=== PATIENT | male | born 1975 | race Asian ===

== ENCOUNTER 2020-11-16 08:55 | Outpatient (REF) | payer MEDICAID, OTHER, SELFPAY ==
--- NOTE | ~2020-11-16 | XR_ITS ---
EXAMINATION: XR CERVICAL SPINE XR LUMBAR SPINE XR SHOULDER, BILATERAL CLINICAL INFORMATION: Neck pain, low back pain and bilateral shoulder pain. COMPARISON: None TECHNIQUE: Lumbar spine 3 views, cervical spine 4 views, 4 views each shoulder. FINDINGS: CERVICAL SPINE: There is mild straightening of the cervical lordosis. Minimal loss of C5-C6 and C6-C7 disc heights with ventral spondylosis noted. The rest of the disc heights are normal. No visible acute fracture or dislocation. The prevertebral soft tissues are normal. LUMBAR SPINE: There is maintained lumbar lordosis. The vertebral heights, alignment and disc heights are normal. No visible acute fracture, dislocation or lytic process seen. RIGHT SHOULDER: There is no visible acute fracture, dislocation or subluxation seen. The soft tissues are normal. LEFT SHOULDER: There is minimal loss of glenohumeral joint space without acute fracture, dislocation or subluxation. The AC joint is normal. The soft tissues are normal. XR/XR cervical spine 2V IMPRESSION: Minimal degenerative changes with ventral spondylosis C5-C6 and C6-C7 disc levels. No visible acute fracture or dislocation seen. Unremarkable lumbar spine exam. Mild degenerative changes glenohumeral joint space with no acute fracture, dislocation or subluxation seen.
--- NOTE | ~2020-11-16 | XR_ITS ---
EXAMINATION: XR CERVICAL SPINE XR LUMBAR SPINE XR SHOULDER, BILATERAL CLINICAL INFORMATION: Neck pain, low back pain and bilateral shoulder pain. COMPARISON: None TECHNIQUE: Lumbar spine 3 views, cervical spine 4 views, 4 views each shoulder. FINDINGS: CERVICAL SPINE: There is mild straightening of the cervical lordosis. Minimal loss of C5-C6 and C6-C7 disc heights with ventral spondylosis noted. The rest of the disc heights are normal. No visible acute fracture or dislocation. The prevertebral soft tissues are normal. LUMBAR SPINE: There is maintained lumbar lordosis. The vertebral heights, alignment and disc heights are normal. No visible acute fracture, dislocation or lytic process seen. RIGHT SHOULDER: There is no visible acute fracture, dislocation or subluxation seen. The soft tissues are normal. LEFT SHOULDER: There is minimal loss of glenohumeral joint space without acute fracture, dislocation or subluxation. The AC joint is normal. The soft tissues are normal. XR/XR shoulder RT min 2V IMPRESSION: Minimal degenerative changes with ventral spondylosis C5-C6 and C6-C7 disc levels. No visible acute fracture or dislocation seen. Unremarkable lumbar spine exam. Mild degenerative changes glenohumeral joint space with no acute fracture, dislocation or subluxation seen.
--- NOTE | ~2020-11-16 | XR_ITS ---
EXAMINATION: XR CERVICAL SPINE XR LUMBAR SPINE XR SHOULDER, BILATERAL CLINICAL INFORMATION: Neck pain, low back pain and bilateral shoulder pain. COMPARISON: None TECHNIQUE: Lumbar spine 3 views, cervical spine 4 views, 4 views each shoulder. FINDINGS: CERVICAL SPINE: There is mild straightening of the cervical lordosis. Minimal loss of C5-C6 and C6-C7 disc heights with ventral spondylosis noted. The rest of the disc heights are normal. No visible acute fracture or dislocation. The prevertebral soft tissues are normal. LUMBAR SPINE: There is maintained lumbar lordosis. The vertebral heights, alignment and disc heights are normal. No visible acute fracture, dislocation or lytic process seen. RIGHT SHOULDER: There is no visible acute fracture, dislocation or subluxation seen. The soft tissues are normal. LEFT SHOULDER: There is minimal loss of glenohumeral joint space without acute fracture, dislocation or subluxation. The AC joint is normal. The soft tissues are normal. XR/XR lumbar spine 2-3V IMPRESSION: Minimal degenerative changes with ventral spondylosis C5-C6 and C6-C7 disc levels. No visible acute fracture or dislocation seen. Unremarkable lumbar spine exam. Mild degenerative changes glenohumeral joint space with no acute fracture, dislocation or subluxation seen.
--- NOTE | ~2020-11-16 | XR_ITS ---
EXAMINATION: XR CERVICAL SPINE XR LUMBAR SPINE XR SHOULDER, BILATERAL CLINICAL INFORMATION: Neck pain, low back pain and bilateral shoulder pain. COMPARISON: None TECHNIQUE: Lumbar spine 3 views, cervical spine 4 views, 4 views each shoulder. FINDINGS: CERVICAL SPINE: There is mild straightening of the cervical lordosis. Minimal loss of C5-C6 and C6-C7 disc heights with ventral spondylosis noted. The rest of the disc heights are normal. No visible acute fracture or dislocation. The prevertebral soft tissues are normal. LUMBAR SPINE: There is maintained lumbar lordosis. The vertebral heights, alignment and disc heights are normal. No visible acute fracture, dislocation or lytic process seen. RIGHT SHOULDER: There is no visible acute fracture, dislocation or subluxation seen. The soft tissues are normal. LEFT SHOULDER: There is minimal loss of glenohumeral joint space without acute fracture, dislocation or subluxation. The AC joint is normal. The soft tissues are normal. XR/XR shoulder LT min 2V IMPRESSION: Minimal degenerative changes with ventral spondylosis C5-C6 and C6-C7 disc levels. No visible acute fracture or dislocation seen. Unremarkable lumbar spine exam. Mild degenerative changes glenohumeral joint space with no acute fracture, dislocation or subluxation seen.
[2020-11-16 09:20] LABS: MANUAL DIFF FLAG NO
[2020-11-16 09:24] LABS: Basophils Percent Auto 0.4 % (0-2); Eosinophils Absolute Auto 0.1 X10*3/uL (0.0-0.4); Eosinophils Percent Auto 1.4 % (0-4); Hematocrit 44.8 % (42-52); Imm Gran Abs Auto 0.02 X10*3/uL (0.00-0.03); Imm Gran Pct Auto 0.2 % (0.0-0.4); Lymphocytes Absolute Auto 3.3 X10*3/uL (1.2-4.9); Mean Corpuscular HGB Conc 33.5 g/dl (31.0-36.0); Mean Corpuscular Hemoglobin 31.6 pg (27.0-33.0); Mean Corpuscular Volume 94.3 fL (80-98); Monocytes Absolute Auto 0.7 X10*3/uL (0.1-1.2); Monocytes Percent Auto 8.2 % (2-11); Neutrophils Absolute Auto 3.9 X10*3/uL (2.0-8.3); Neutrophils Percent Auto 48.8 % (45-73); Platelet Count 196 X10*3/uL (160-400); Red Blood Count 4.75 X10*6/uL (4.60-5.80); Red Cell Distribution Width 12.6 % (11.0-16.0)
[2020-11-16 09:50] LABS: Alanine Aminotransferase 21 U/L (0-40); Albumin Level 4.4 g/dL (3.5-5.0); Alkaline Phosphatase 61 U/L (39-117); Anion Gap 12 (12-20); Aspartate Amino Transferase 17 U/L (5-37); Bilirubin Total 0.7 mg/dL (0.0-1.0); Blood Urea Nitrogen 11 mg/dL (9-16); Calcium 9.7 mg/dL (8.4-10.2); Carbon Dioxide 26 mmol/L (22-29); Chloride 107 mmol/L (96-108); Estimated Glomerular Filt Rate > 60; Glucose Random 100 mg/dL (60-115); Potassium 4.4 mmol/L (3.3-5.1); Sodium 141 mmol/L (135-145); Total Protein 7.4 g/dL (6.5-8.0)
[2020-11-16 10:12] LABS: Prostate Specific Antigen 0.52 ng/mL (<0.05-4.0); TSH reflex Free T4 0.95 uIU/mL (0.32-4.0)
== END 2020-11-16 08:56 | disposition home or self-care (01) ==
LOC: HO.XRAY 08:55
PROVIDERS: PCP Internal Medicine; Visit Provider Internal Medicine
DX: M54.5 Low back pain (principal); M25.511 Pain in right shoulder; M25.512 Pain in left shoulder; M54.2 Cervicalgia; L81.9 Disorder of pigmentation, unspecified; N40.1 Benign prostatic hyperplasia with lower urinary tract symptoms; R39.15 Urgency of urination; R63.4 Abnormal weight loss; Z12.5 Encounter for screening for malignant neoplasm of prostate
CPT/HCPCS: 36415; 72040; 72100; 73030; 80053; 84153; 84443; 85025

== ENCOUNTER 2024-01-04 15:25 | Outpatient (AMB) | payer OTHER, SELFPAY ==
[2024-01-04 15:44] VITALS: BP 120/70; PULSE 70; O2SAT 96; BMI 26.0
--- NOTE | 2024-01-04 15:44 | A.OFFPC_ITS ---
Vital Signs 01/04/24 15:44 Height 5 ft 4 in Weight 151 lb 4 oz BMI 26.0 BP 120/70 Blood Pressure Location Lt brachial Position Sitting Pulse 70 Pulse Source Pulse Oximeter Pulse Oximetry (%) 96 Oxygen Delivery Method Room Air Intake Visit Reasons: Annual exam It Business Process Architect Required: No Accompanied by: Self / Same As Patient Allergies No Known Allergies Allergy (Verified 01/05/24 05:08) Medication List - Last Reconciled 01/05/24 by Noe Dean MD tamsulosin 0.4 mg PO BEDTIME 30 days Tobacco use date assessed: 01/04/24 Dental Screening Dental Screen Date: 01/04/24 Did you have a dental visit in the last 12 months?: No Did you have a dental problem in the last 6 months where you did not have access to dental care?: No Was dental information given to patient?: No HPI Annual exam HPI Details Patient comes in today for his annual physical examination He has not been back since October 2020 as he states that we were not accepting the health insurance that he used to have over the past few years Relates that he was having a lot of problems with his stomach and with his bowel movements for a while a couple of years ago - recalls having frequent loose stools daily and states that his stomach often feels bloated and uncomfortable He was also inexplicably losing a lot of weight at the time Also recalls experiencing urinary frequency and urgency then - states that his urinary symptoms improved slowly after we started him on Tamsulosin he could not be seen or worked up then when he was having a lot of stomach and bowel issues, he eventually went to [place] to see a doctor there who practiced [place]/eastern medicine and was advised then that he may have some underlying GI pathology and/or infection but as his insurance was not commonly accepted at the time, he could not go for further work ups He was eventually prescribed some unrecalled herbal medicines that he boiled and drank daily for several months before his symptoms finally cleared up completely States that his bowel movements are now back to normal but he would still occasionally experience some abdominal bloating and discomfort; denies any abdominal pain, nausea or vomiting He denies any headaches or dizziness Denies any SOB or chest pains although he reports that he would sometimes feel his heart race or skip a couple of beats - notes that this tend to occur when he gets up too quickly from bending over He denies experiencing any other symptoms associated with these He currently denies any urinary frequency, urgency or dysuria He has never had a screening colonoscopy done in the past [facility] Medical History (Updated 01/05/24 @ 05:29 by Noe Dean MD) Overweight (BMI 25.0-29.9) Benign prostatic hyperplasia Smoker Neck pain Weight loss Bilateral shoulder pain Lumbar back pain with radiculopathy affecting right lower extremity Surgical History No significant past surgical history Family History Other No significant family history Social History Housing: House Alcohol intake: never Patient Tobacco Use Status: Current everyday Tobacco user Cigarettes Per Day: 4 service: No Current occupational status: employed Current occupation: [employer] Cognitive needs: No Hearing needs: No Vision needs: No Questionnaire PHQ-9 Over the last 2 weeks, how often have you been bothered by any of the following problems? 1. Little interest or pleasure in doing things: not at all 2. Feeling down, depressed, or hopeless: not at all 3. Trouble falling or staying asleep, or sleeping too much: not at all 4. Feeling tired or having little energy: not at all 5. Poor appetite or overeating: not at all 6. Feeling bad about yourself - or that you are a failure or have let yourself or your family down: not at all 7. Trouble concentrating on things, such as reading the newspaper or watching television: not at all 8. Moving or speaking so slowly that other people could have noticed. Or the opposite - being so fidgety or restless that you have been moving around a lot more than usual: not at all 9. Thoughts that you would be better off or of hurting yourself in some way: not at all Total score: 0 Depression Screening Interpretation: Negative Depression Screening Done: Yes [id number] - PHQ-9 Billing: Yes Source: Developed by Drs. Ulisses El, Joanne Wang, Jesús Krueger and colleagues, with an educational paradise from [employer]. Thrive Questionnaire Date Thrive assessed: 01/04/24 I am a: Parent/Caregiver What is your living situation today?: I have a steady place to live Within the past 12 months, did the food you bought not last and you didn't have the money to get more?: I choose not to answer this question Within the past 12 months, did you worry whether your food would run out before you got money to buy more?: I choose not to answer this question Do you have trouble paying for medicines?: I choose not to answer this question Do you have trouble getting transportation to medical appointments?: I choose not to answer this question Do you have trouble paying your heating and electricity bill?: No Do you have trouble taking care of your child, family member or friend?: No Do you have trouble with day-to-day activities such as bathing, preparing meals, shopping, managing finances, etc.?: No Are you currently unemployed and looking for a job?: No Are you interested in more education?: I choose not to answer this question Please select the resources that you would like help with: None Currently or been in a relationship where the following occur: No concerns reported THRIVE Score: 0 AUDIT C Alcohol Use Questionnaire (AUDIT-C) 1. How often do you have a drink containing alcohol?: Never 3. How often do you have six or more drinks on one occasion?: Never Total Score: 0 Score Reviewed/Action Taken: Yes SUE-7 AMB Questionnaire SUE-7 Date SUE - 7 assessed: 01/04/24 Feeling nervous, anxious, or on edge: 0 = Not at all Not being able to stop or control worryin = Not at all Worrying too much about different things: 0 = Not at all Trouble relaxin = Not at all Being so restless that it is hard to sit still: 0 = Not at all Becoming easily annoyed or irritable: 0 = Not at all Feeling afraid as if something awful might happen: 0 = Not at all Total SUE-7 score (0-4 normal; 5-9 mild; 10-14 moderate; 15-21 severe): 0 Source: Developed by Drs. Ulisses El, Joanne Wang, Jesús Krueger and colleagues, with an educational paradise from [employer]. Review of Systems Const Denies chills, Denies fatigue, Denies fever(s), Denies headache(s), Denies malaise and Denies weakness Eyes Denies blurry vision, Denies change in vision, Denies irritation and Denies itchy eyes ENT Denies dysphagia, Denies dizziness, Denies otalgia, Denies headache(s), Denies nasal congestion, Denies neck pain, Denies odynophagia and Denies sore throat Card Denies chest pain, Reports rapid heart rate (as per HPI, these tend to occur briefly when he gets up too quickly), Denies irregular heart rhythm, Denies palpitations and Denies dyspnea Resp Denies chest congestion, Denies cough, Denies dyspnea and Denies wheezing GI Denies abdominal pain, Reports bloating (at times), Denies constipation, Denies dysphagia, Denies heartburn, Denies diarrhea, Denies nausea, Denies odynophagia and Denies vomiting Denies hematuria, Denies difficulty urinating, Denies dysuria, Denies urinary frequency and Denies urinary urgency (symptoms improved with Tamsulosin) Musc Reports back pain (on and off), Denies arthralgias, Denies joint swelling, Denies muscle weakness and Denies neck pain Skin/Breast Denies change in pigmentation, Denies lesions, Denies rash and Denies unusual bruising Neuro Denies dizziness, Denies headache(s), Denies paresthesias and Denies weakness Endo Denies fatigue and Denies palpitations Aller/Immun Denies itchy eyes and Denies wheezing Physical exam (Primary Care) Vital Signs: Last Vital Signs Pulse 70 01/04/24 15:44 BP 120/70 01/04/24 15:44 Pulse Ox 96 01/04/24 15:44 Oxygen Delivery Method Room Air 01/04/24 15:44 BMI result Body Mass Index 26.0 Tobacco/Smoking Status: Tobacco use Status Tobacco use date assessed 01/04/24 01/04/24 15:47 Patient Tobacco Use Status Current everyday Tobacco 01/04/24 15:47 PHQ-9: PHQ-9 Score PHQ-9: Total score 0 01/04/24 16:54 Depression Screening Interpretation: Negative Thrive Assessment: Date of Thrive Assessment Date Thrive assessed 01/04/24 01/04/24 15:47 Currently or been in a relationship where the following occur: No concerns reported Const General: no acute distress, alert and awake Orientation/consciousness: patient oriented x3 HENMT Head: Yes normocephalic and Yes atraumatic Ears: external ears normal, TM's normal bilaterally and EAC's normal General nose exam: No nasal discharge present Face and sinus: Yes normal facial exam and Yes sinuses nontender Teeth and gingiva: dentition normal Throat: Yes posterior oropharynx normal and Yes tonsils normal (no TP congestion) Eyes Eyelids: Yes eyelids normal Conjunctivae: conjunctivae normal Pupils: Equal, round and reactive pupils present EOM: EOMs intact bilaterally Neck Neck: Yes no lymphadenopathy and Yes supple Thyroid: Thyroid normal Resp Auscultation: clear to auscultation bilaterally, no rales and no wheezes Cardio Rate: regular rate Rhythm: regular rhythm Heart sounds: no murmurs GI Palpation (GI): Soft to palpation, nontender and No hepatosplenomegaly present Auscultation: normal bowel sounds General: Yes no CVA tenderness Back/Spine/Pelvis Back: no CVA tenderness Thoracic/Lumbar Spine: thoracic and lumbar spine normal to inspection Skin Lesions: no lesions Rashes: no rashes Neuro General: patient oriented x3, moves all extremities, no focal motor deficits and CN's II-XI intact bilaterally Cranial nerves: Yes Equal, round and reactive pupils present Cognition (Neuro): normal cognition Gait exam (Neuro): Normal gait present Extrem General: Yes no clubbing, cyanosis or edema Assessment and Plan Assessment & Plan (1) Annual physical exam: Code(s): Z00.00 - Encounter for general adult medical examination without abnormal findings Plan: Check labs He has never had a screening colonoscopy done and will be referred for this (2) Tachycardia, unspecified: Code(s): R00.0 - Tachycardia, unspecified Plan: Check labs Will also send him for a 12-lead EKG for further evaluation (3) Dyspnea: Code(s): R06.00 - Dyspnea, unspecified Qualifiers: Dyspnea type: unspecified Qualified Code(s): R06.00 - Dyspnea, unspecified Plan: Will send him for chest x-rays for further evaluation Advised that if his chest x-rays and EKG do not help explain his symptoms and they continue to recur, he may need to go for an echocardiogram for further evaluation (4) Urinary urgency: Code(s): R39.15 - Urgency of urination Plan: This is likely secondary to BPH Will check his PSA level for further evaluation Continue Tamsulosin 0.4 mg Q HS for now (5) Smoker: Code(s): F17.200 - Nicotine dependence, unspecified, uncomplicated Plan: Counseled on smoking cessation (6) Overweight (BMI 25.0-29.9): Code(s): E66.3 - Overweight Plan: Reinforced diet/weight loss; exercise is impractical for him considering his line of work but states that 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 Panel Fast 01/04/24 E78.00 - Pure hypercholesterolemia, unspecified, Z00.00 - Encounter for general adult medical examination without abnormal findings UA CC w/rflx Micro + Cult 01/04/24 R30.0 - Dysuria, Z00.00 - Encounter for general adult medical examination without abnormal findings Vitamin D 25-OH Total 01/04/24 E55.9 - Vitamin D deficiency, unspecified, Z00.00 - Encounter for general adult medical examination without abnormal findings Hemoglobin A1c 01/04/24 E11.9 - Type 2 diabetes mellitus without complications, Z00.00 - Encounter for general adult medical examination without abnormal fi ndings Prostate Specific Antigen 01/04/24 N40.0 - Benign prostatic hyperplasia without lower urinary tract symptoms, Z00.00 - Encounter for general adult medical examination without abnormal findings XR chest 2V 01/04/24 R06.00 - Dyspnea, unspecified Complete Blood Count Auto Diff 01/04/24 D64.9 - Anemia, unspecified, Z00.00 - Encounter for general adult medical examination without abnormal findings Lipid Panel 01/04/24 E78.00 - Pure hypercholesterolemia, unspecified, Z00.00 - Encounter for general adult medical examination without abnormal findings TSH reflex Free T4 01/04/24 E78.00 - Pure hypercholesterolemia, unspecified, Z00.00 - Encounter for general adult medical examination without abnormal findings ECG 12 lead EKG 09/17/24 R06.00 - Dyspnea, unspecified C Reactive Protein 01/04/24 M25.511 - Pain in right shoulder, M25.512 - Pain in left shoulder, M54.16 - Radiculopathy, lumbar region Erythrocyte Sedimentation Rate 01/04/24 M54.16 - Radiculopathy, lumbar region Referrals Gastroenterology Referral Z00.00 - Encounter for general adult medical examination without abnormal findings, Z12.11 - Encounter for screening for malignant neoplasm of colon Coding Level of Care Code [facility] Care [id number]) Diagnoses Annual physical exam Z00.00 Tachycardia, unspecified R00.0 Dyspnea, unspecified type R06.00 Dyspnea type: unspecified Urinary urgency R39.15 Smoker F17.200 Overweight (BMI 25.0-29.9) E66.3 Colon cancer screening Z12.11
== END 2024-01-04 16:45 | disposition home or self-care (01) ==
PROVIDERS: PCP Internal Medicine; Visit Provider Internal Medicine
DX: Z00.00 Encounter for general adult medical examination without abnormal findings (principal); R00.0 Tachycardia, unspecified; R06.00 Dyspnea, unspecified; R39.15 Urgency of urination; F17.200 Nicotine dependence, unspecified, uncomplicated; E66.3 Overweight; Z12.11 Encounter for screening for malignant neoplasm of colon

== ENCOUNTER → 2024-01-04 15:25 | Outpatient (BNVA) | payer OTHER, SELFPAY | PROVIDERS: PCP Internal Medicine; Visit Provider Internal Medicine | DX: Z00.01 Encounter for general adult medical examination with abnormal findings (principal); R00.0 Tachycardia, unspecified; R06.00 Dyspnea, unspecified; R39.15 Urgency of urination; E66.3 Overweight; F17.200 Nicotine dependence, unspecified, uncomplicated; Z71.6 Tobacco abuse counseling | CPT/HCPCS: 99386 ==

== ENCOUNTER 2024-01-05 07:37 | Outpatient (REF) | payer OTHER, SELFPAY ==
--- NOTE | ~2024-01-05 | XR_ITS ---
EXAMINATION: XR CHEST CLINICAL INFORMATION: R06.00 - Dyspnea, unspecified COMPARISON: None available. TECHNIQUE: 2 views of the chest were obtained. FINDINGS: No significant abnormality is noted involving the heart, lungs, mediastinum, bony thorax or soft tissues. XR/XR chest 2V IMPRESSION: Normal chest. Electronically signed by: Jose Tran MD 03/15/2024 02:03 PM [facility]
--- NOTE | 2024-01-05 07:44 | ECG_ITS ---
Test Reason : dyspnea Blood Pressure : / mmHG Vent. Rate : 063 BPM Atrial Rate : 063 BPM P-R Int : 138 ms QRS Dur : 102 ms QT Int : 408 ms P-R-T Axes : 048 063 046 degrees QTc Int : 417 ms Normal sinus rhythm Normal ECG No previous ECGs available Referred By: Noe Dean Electronically Signed By:KELLI BALL
[2024-01-05 07:53] LABS: MANUAL DIFF FLAG NO
[2024-01-05 08:29] LABS: Basophils Percent Auto 0.4 % (0-2); Eosinophils Absolute Auto 0.1 X10*3/uL (0.0-0.4); Eosinophils Percent Auto 1.4 % (0-4); Hematocrit 47.1 % (42.0-52.0); Hemoglobin 15.7 g/dl (14.0-18.0); Imm Gran Abs Auto 0.03 X10*3/uL (0.00-0.03); Imm Gran Pct Auto 0.3 % (0.0-0.4); Lymphocytes Absolute Auto 3.7 X10*3/uL (1.2-4.9); Lymphocytes Percent Auto 40.1 % (20-40); Mean Corpuscular HGB Conc 33.3 g/dl (31.0-36.0); Mean Corpuscular Volume 95.9 fL (80.0-98.0); Mean Platelet Volume 10.1 fL (9.4-12.4); Monocytes Absolute Auto 0.8 X10*3/uL (0.1-1.2); Monocytes Percent Auto 8.2 % (2-11); Neutrophils Absolute Auto 4.6 x10*3/uL (2.0-8.3); Neutrophils Percent Auto 49.6 % (45-73); Platelet Count 212 X10*3/uL (160-400); Red Blood Count 4.91 X10*6/uL (4.60-5.80); Red Cell Distribution Width 12.8 % (11.0-16.0); White Blood Count 9.3 X10*3/uL (4.8-10.8)
[2024-01-05 08:34] LABS: Estimated Average Glucose 103 mg/dL; Hemoglobin A1c % 5.2 % (<6.0)
[2024-01-05 09:11] LABS: Erythrocyte Sedimentation Rate 2 MM/HR (0-15)
[2024-01-05 09:14] LABS: Alanine Aminotransferase 36 U/L (0-40); Albumin Level 4.3 g/dL (3.5-5.0); Alkaline Phosphatase 64 U/L (39-117); Anion Gap 10 (12-20); Aspartate Amino Transferase 23 U/L (5-37); Bilirubin Total 0.2 mg/dL (0.0-1.0); Blood Urea Nitrogen 18 mg/dL (9-16); C Reactive Protein < 0.10 mg/dL (< or = 0.50); Calcium 9.3 mg/dL (8.4-10.2); Carbon Dioxide 26 mmol/L (22-29); Chloride 111 mmol/L (96-108); Cholesterol 142 mg/dL (<200); Estimated Glomerular Filt Rate > 60; Glucose Fasting 97 mg/dL (60-99); HDL Cholesterol 42 mg/dL (>40); LDL Cholesterol Calculated 89 mg/dL (<100); Potassium 4.7 mmol/L (3.3-5.1); Sodium 142 mmol/L (135-145); Total Protein 7.8 g/dL (6.5-8.0); Triglycerides 56 mg/dL (<150)
[2024-01-05 09:19] LABS: TSH reflex Free T4 1.96 uIU/mL (0.32-4.0); Vitamin D 25-OH Total 33.1 ng/mL (>30)
[2024-01-05 09:50] LABS: Appearance Urine Clear; Color Urine Yellow; Glucose Urine UA Negative (Negative); Leukocyte Esterase Urine Negative (Negative); Nitrite Urine Negative (Negative); Urine Blood Negative (Negative); Urine Ketones Negative (Negative); Urine Protein Negative (Neg-Trace)
== END 2024-01-05 07:38 | disposition home or self-care (01) ==
LOC: HO.XRAY 07:37
PROVIDERS: PCP Internal Medicine; Visit Provider Internal Medicine
DX: Z00.00 Encounter for general adult medical examination without abnormal findings (principal); M25.511 Pain in right shoulder; M25.512 Pain in left shoulder; M54.16 Radiculopathy, lumbar region; E11.9 Type 2 diabetes mellitus without complications; E78.00 Pure hypercholesterolemia, unspecified; N40.0 Benign prostatic hyperplasia without lower urinary tract symptoms; R30.0 Dysuria; E55.9 Vitamin D deficiency, unspecified
CPT/HCPCS: 36415; 71046; 80053; 80061; 81003; 82306; 83036; 84153; 84443; 85025; 85652; 86140; 93005

== ENCOUNTER → 2024-01-05 08:19 | Outpatient (BNV) | payer OTHER, SELFPAY | PROVIDERS: PCP Internal Medicine; Visit Provider Radiology Diagnostic Radiology | DX: R06.00 Dyspnea, unspecified (principal) | CPT/HCPCS: 71046 ==

== ENCOUNTER 2024-07-11 09:28 | Outpatient (AMB) | payer OTHER, SELFPAY ==
--- NOTE | 2024-07-11 09:32 | MHC.OFFVIS ---
Vital Signs 07/11/24 09:35 Height 5 ft 4 in Weight 156 lb 8.451 oz BMI 26.9 BP 126/66 Blood Pressure Location Rt brachial Position Sitting Pulse 64 Pulse Source Pulse Oximeter Pulse Oximetry (%) 97 Oxygen Delivery Method Room Air Intake Visit Reasons: Colonoscopy Screening Intake Note: NEW PATIENT for initial colo screening. Chief Complaint; No GI concerns at this time. Pt would prefer cologuard over procedure. Customer Support Advisor Required: Yes Customer Support Advisor Services: Customer Support Advisor Offered & Declined Information Interpreted: clinical only Accompanied by: Family/Other Allergies shellfish derived Allergy (Severe, Verified 07/11/24 09:40) Anaphylaxis HPI HPI Colonoscopy Screening: Details: 49 year old? male with past medical history of tachycardia, depression, BPH, lumbar back pain, urinary urgency is here today for pre colonoscopy screening.? Patient was sent to us by his PCP.? This is his first colonoscopy screening.? Patient denies any gastrointestinal symptoms in the past or at present.? However patient does admit of chronic IBS symptoms. Depending on what he eats frequent bowel movements, denies diarrhea. Denies melena, hematochezia. Patient would like to do Cologuard 1st. He understands that if comes back positive he will go for colonoscopy.? Patient denies any dyspepsia, dysphagia or odynophagia. Reports to be feeling fairly well. Denies any additional GI concerning symptoms.Denies any personal or family history of gastrointestinal disease, colon polyps, or CRC.? REPLACED BY [facility] Medical History (Updated 01/05/24 @ 05:29 by Noe Dean MD) Overweight (BMI 25.0-29.9) Benign prostatic hyperplasia Smoker Neck pain Weight loss Bilateral shoulder pain Lumbar back pain with radiculopathy affecting right lower extremity Surgical History No significant past surgical history Family History (Updated 07/11/24 @ 09:51 by [facility]) Unknown No significant family history Social History Housing: House Alcohol intake: never Patient Tobacco Use Status: Current everyday Tobacco user Cigarettes Per Day: 4 service: No Current occupational status: employed Current occupation: cook Cognitive needs: No Hearing needs: No Vision needs: No Review of Systems Const Denies weight gain and Denies weight loss ENT Reports no additional complaints, Denies dysphagia and Denies odynophagia Card Reports no additional complaints Resp Reports no additional complaints GI Denies abdominal pain, Denies belching, Denies melena, Denies bloating, Denies change in bowel habits, Denies dysphagia, Denies excessive flatus, Denies dyspepsia, Denies heartburn, Denies diarrhea, Denies loose stools, Denies nausea, Denies odynophagia and Denies vomiting Reports no additional complaints Musc Reports no additional complaints Neuro Reports no additional complaints Psych Reports no additional complaints Endo Reports no additional complaints Physical Exam Const General: healthy appearing, no acute distress and well developed Nutritional Appearance: well nourished Orientation/consciousness: patient oriented x3 Resp Effort & Inspection: normal respiratory effort, able to speak in complete sentences, no tracheal deviation and symmetric chest movement Auscultation: clear to auscultation bilaterally Cardio Rate: regular rate GI Inspection: Yes normal to inspection and No distended Palpation (GI): Soft to palpation, not firm, nontender and No hepatosplenomegaly present Auscultation: normal bowel sounds General: Yes no CVA tenderness Back/Spine/Pelvis Back: no CVA tenderness Skin General skin exam: elasticity normal, turgor normal and dry skin Neuro General: patient oriented x3 Psych Appearance: grossly normal Mental Status: mental status grossly normal Assessment & Plan Assessment & Plan (1) Colon cancer screening: Code(s): Z12.11 - Encounter for screening for malignant neoplasm of colon Category: Medical Plan Will send Cologuard. If positive patient agreed to go for colonoscopy. Will call patient with results and bring him in for colo screening if positive. Patient is agreeable to this plan and verbalizes understanding of instructions. He was given the opportunity to ask questions and all questions answered. Thank you for allowing me to participate in his care Coding Level of Care Code New Pt Level 3 (25287) Diagnoses Colon cancer screening Z12.11 Time Spent (min) 40 Comment 30 minutes spent with patient and additional 10 minutes spent reviewing his records
[2024-07-11 09:35] VITALS: BP 126/66; PULSE 64; O2SAT 97; BMI 26.9
== END 2024-07-11 09:55 | disposition home or self-care (01) ==
LOC: HO.HGI 09:28
PROVIDERS: PCP Internal Medicine; Visit Provider Nurse Practitioner Family
DX: Z01.818 Encounter for other preprocedural examination (principal); Z12.11 Encounter for screening for malignant neoplasm of colon
CPT/HCPCS: 99202

== ENCOUNTER → 2024-07-11 09:28 | Outpatient (BNVA) | payer OTHER, SELFPAY | PROVIDERS: PCP Internal Medicine; Visit Provider Nurse Practitioner Family | DX: Z12.11 Encounter for screening for malignant neoplasm of colon (principal) | CPT/HCPCS: 99202 ==

== ENCOUNTER 2024-10-26 08:05 | Outpatient (AMB) | payer OTHER, SELFPAY ==
[2024-10-26 08:13] VITALS: BP 100/62; PULSE 74; TEMP 36.6; O2SAT 95; BMI 26.1
--- NOTE | 2024-10-26 08:13 | AM.OFFWIN_ITS ---
Intake Vital Signs 10/26/24 08:13 Height 5 ft 4 in Weight 152 lb BMI 26.1 BP 100/62 Blood Pressure Location Rt brachial Position Sitting Pulse 74 Pulse Source Pulse Oximeter Temp 97.8 F Temp Source Oral Pulse Oximetry (%) 95 Oxygen Delivery Method Room Air Intake Visit Reasons: EP pain on RT leg/foot Intake Note: presents with right hip pain down to right foot and right shoulder pain that is worse with the rainy weather for years. Also c/o belly ache with diarrhea sometimes. Patient Tobacco Use Status: Current everyday Tobacco user Allergies shellfish derived Allergy (Severe, Verified 10/26/24 08:20) Anaphylaxis Do you need a note to return to daycare/school/sports/work: No HPI HPI Comments History of Present Illness Details 49 y/o Male patient who presents to the walk in clinic with c/o Abdominal pain for 1-2 weeks. Reports symptoms on/off associated with Loose Stools. Denies Nausea/vomiting/Fevers or chills. 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 Denies any Diet, medication changes. Denies any recent Travels. Denies Urinary symptoms. Denies Blood in Stools. Patient has Colonoscopy done. Patient was accompanied by a Cousin who assisted with Translation - declined Language line translator/interpreter. [facility] Medical History (Updated 10/26/24 @ 10:07 by Clari Rodas NP) Generalized abdominal pain Overweight (BMI 25.0-29.9) Benign prostatic hyperplasia Smoker Neck pain Weight loss Bilateral shoulder pain Lumbar back pain with radiculopathy affecting right lower extremity Surgical History No significant past surgical history Family History (Updated 07/11/24 @ 09:51 by SUREKHA Crowley) Unknown No significant family history Social History Housing: House Alcohol intake: never Patient Tobacco Use Status: Current everyday Tobacco user Cigarettes Per Day: 4 service: No Current occupational status: employed Current occupation: cook Cognitive needs: No Hearing needs: No Vision needs: No Review of Systems Const All systems reviewed & are unremarkable except as noted in HPI and below Physical Exam Vital Signs: Last Vital Signs Temp 97.8 F 10/26/24 08:13 Pulse 74 10/26/24 08:13 BP 100/62 10/26/24 08:13 Pulse Ox 95 10/26/24 08:13 Oxygen Delivery Method Room Air 10/26/24 08:13 BMI result Body Mass Index 26.1 Const General: no acute distress Nutritional Appearance: well nourished Orientation/consciousness: patient oriented x3 Resp Effort & Inspection: normal respiratory effort and able to speak in complete sentences Auscultation: clear to auscultation bilaterally, no crackles, no rales, no rhonchi and no wheezes Cardio Heart sounds: S1 normal heart sound present and S2 normal heart sound present GI Inspection: Yes normal to inspection Palpation (GI): Soft to palpation, not firm, nontender, no guarding, not rigid and No hepatosplenomegaly present Auscultation: normal bowel sounds Rectal Exam - Male: Yes deferred General: Yes no CVA tenderness Back/Spine/Pelvis Back: no CVA tenderness Neuro General: patient oriented x3 Assessment & Plan Assessment & Plan (1) Generalized abdominal pain: Code(s): R10.84 - Generalized abdominal pain Plan: DDx: GERD vs Gastritis vs Viral Abdominal pain mostly located at Epigastric region. Pt Will need to schedule for Colonoscopy with GI Advised to avoid Oily greasy foods and Spicy Hydrate well with fluids. Maintain a Good Hand hygiene. Coding Level of Care Code Est Pt Level 4 (75009) Diagnoses Generalized abdominal pain R10.84 Time Spent (min) 20
== END 2024-10-26 09:24 | disposition home or self-care (01) ==
PROVIDERS: PCP Internal Medicine; Visit Provider Nurse Practitioner Family
DX: R10.84 Generalized abdominal pain (principal)

== ENCOUNTER → 2024-10-26 08:05 | Outpatient (BNVA) | payer OTHER, SELFPAY | PROVIDERS: PCP Internal Medicine; Visit Provider Nurse Practitioner Family | DX: R10.84 Generalized abdominal pain (principal) | CPT/HCPCS: 99212 ==

== ENCOUNTER 2025-01-23 16:34 | Outpatient (AMB) | payer OTHER, SELFPAY ==
--- NOTE | 2025-01-23 17:05 | A.OFFPC_ITS ---
Vital Signs 01/23/25 17:06 Height 5 ft 4 in Weight 153 lb 4 oz BMI 26.3 BP 120/80 Blood Pressure Location Lt brachial Position Sitting Respiration 18 Pulse 90 Pulse Source Pulse Oximeter Temp 97.3 F Temp Source Temporal Artery Scan Pulse Oximetry (%) 98 Oxygen Delivery Method Room Air Intake Visit Reasons: Annual Physical, Home Furnishings Sales Representative Required: No Accompanied by: Self / Same As Patient Allergies shellfish derived Allergy (Severe, Verified 01/24/25 05:49) Anaphylaxis Medication List - Last Reconciled 01/24/25 by Noe Dean MD No Known Home Meds Tobacco use date assessed: 01/23/25 Dental Screening Dental Screen Date: 01/23/25 Did you have a dental visit in the last 12 months?: No Did you have a dental problem in the last 6 months where you did not have access to dental care?: No Was dental information given to patient?: No HPI Annual Physical, HPI Details Patient comes in today for his annual physical examination States that he feels okay and that his previous complaints of tachycardia and dyspnea have since resolved and patient thinks that those were mostly due to anxiety as he recalls being under a lot of stress last year He denies any headaches or dizziness Denies any chest pains, no SOB No nausea/vomiting, no abdominal pain No change in bowel habits noted He denies any acute urinary symptoms - his previous urinary symptoms last year have also resolved and states that he did not even started taking the Tamsulosin that we prescribed for him last year He was seen by GI for a precolonoscopy visit earlier this year but instead ended up getting a Cologuard test done instead of an actual colonoscopy Recalls that he did his Cologuard test sometime back in September 2024 and would like to know how his test came out - states that GI never reached out back to him to let him know about his test results [facility] Medical History Generalized abdominal pain Overweight (BMI 25.0-29.9) Benign prostatic hyperplasia Smoker Neck pain Weight loss Bilateral shoulder pain Lumbar back pain with radiculopathy affecting right lower extremity Surgical History No significant past surgical history Family History Unknown No significant family history Social History Housing: House Alcohol intake: never Patient Tobacco Use Status: Current everyday Tobacco user Cigarettes Per Day: 4 service: No Current occupational status: employed Current occupation: [employer] Cognitive needs: No Hearing needs: No Vision needs: No Questionnaire PHQ-9 Over the last 2 weeks, how often have you been bothered by any of the following problems? 1. Little interest or pleasure in doing things: not at all 2. Feeling down, depressed, or hopeless: not at all 3. Trouble falling or staying asleep, or sleeping too much: not at all 4. Feeling tired or having little energy: not at all 5. Poor appetite or overeating: not at all 6. Feeling bad about yourself - or that you are a failure or have let yourself or your family down: not at all 7. Trouble concentrating on things, such as reading the newspaper or watching television: not at all 8. Moving or speaking so slowly that other people could have noticed. Or the opposite - being so fidgety or restless that you have been moving around a lot more than usual: not at all 9. Thoughts that you would be better off or of hurting yourself in some way: not at all Total score: 0 Depression Screening Interpretation: Negative Depression Screening Done: Yes 07508 - PHQ-9 Billing: Yes Source: Developed by Drs. Ulisses El, Joanne Wang, Jesús Krueger and colleagues, with an educational paradise from [employer]. Thrive Questionnaire Date Thrive assessed: 01/23/25 I am a: Parent/Caregiver What is your living situation today?: I have a steady place to live Within the past 12 months, did the food you bought not last and you didn't have the money to get more?: Sometimes True Within the past 12 months, did you worry whether your food would run out before you got money to buy more?: Never true Do you have trouble paying for medicines?: No Do you have trouble getting transportation to medical appointments?: No Do you have trouble paying your heating and electricity bill?: No Do you have trouble taking care of your child, family member or friend?: No Do you have trouble with day-to-day activities such as bathing, preparing meals, shopping, managing finances, etc.?: No Are you currently unemployed and looking for a job?: Yes Are you interested in more education?: No Please select the resources that you would like help with: None Currently or been in a relationship where the following occur: I choose not to answer THRIVE Score: 1 AUDIT C Alcohol Use Questionnaire (AUDIT-C) 1. How often do you have a drink containing alcohol?: Never Total Score: 0 Score Reviewed/Action Taken: Yes SUE-7 AMB Questionnaire SUE-7 Date SUE - 7 assessed: 01/04/24 Feeling nervous, anxious, or on edge: 0 = Not at all Not being able to stop or control worryin = Not at all Worrying too much about different things: 0 = Not at all Trouble relaxin = Not at all Being so restless that it is hard to sit still: 0 = Not at all Becoming easily annoyed or irritable: 0 = Not at all Feeling afraid as if something awful might happen: 0 = Not at all Total SUE-7 score (0-4 normal; 5-9 mild; 10-14 moderate; 15-21 severe): 0 Source: Developed by Drs. Ulisses El, Joanne Wang, Jesús Krueger and colleagues, with an educational paradise from [employer]. Review of Systems Const Denies chills, Denies fatigue, Denies fever(s), Denies headache(s), Denies malaise and Denies weakness Eyes Denies blurry vision, Denies change in vision, Denies irritation and Denies itchy eyes ENT Denies dysphagia, Denies dizziness, Denies otalgia, Denies headache(s), Denies nasal congestion, Denies neck pain, Denies odynophagia and Denies sore throat Card Denies chest pain, Denies rapid heart rate, Denies irregular heart rhythm, Denies palpitations and Denies dyspnea Resp Denies chest congestion, Denies cough, Denies dyspnea and Denies wheezing GI Denies abdominal pain, Denies bloating, Denies constipation, Denies dysphagia, Denies heartburn, Denies diarrhea, Denies nausea, Denies odynophagia and Denies vomiting Denies hematuria, Denies difficulty urinating, Denies dysuria, Denies urinary frequency and Denies urinary urgency Musc Denies back pain, Denies arthralgias, Denies joint swelling, Denies muscle weakness and Denies neck pain Skin/Breast Denies change in pigmentation, Denies lesions, Denies rash and Denies unusual bruising Neuro Denies dizziness, Denies headache(s), Denies paresthesias and Denies weakness Endo Denies fatigue and Denies palpitations Aller/Immun Denies itchy eyes and Denies wheezing Physical exam (Primary Care) Vital Signs: Last Vital Signs Temp 97.3 F 01/23/25 17:06 Pulse 90 01/23/25 17:06 Resp 18 01/23/25 17:06 BP 120/80 01/23/25 17:06 Pulse Ox 98 01/23/25 17:06 Oxygen Delivery Method Room Air 01/23/25 17:06 BMI result Body Mass Index 26.3 Tobacco/Smoking Status: Tobacco use Status Tobacco use date assessed 01/23/25 01/23/25 17:12 Patient Tobacco Use Status Current everyday Tobacco 01/23/25 17:12 PHQ-9: PHQ-9 Score PHQ-9: Total score 0 01/23/25 17:53 Depression Screening Interpretation: Negative Thrive Assessment: Date of Thrive Assessment Date Thrive assessed 01/23/25 01/23/25 17:12 Currently or been in a relationship where the following occur: I choose not to answer Const General: no acute distress, alert and awake Orientation/consciousness: patient oriented x3 HENMT Head: Yes normocephalic and Yes atraumatic Ears: external ears normal, TM's normal bilaterally and EAC's normal General nose exam: No nasal discharge present Face and sinus: Yes normal facial exam and Yes sinuses nontender Teeth and gingiva: dentition normal Throat: Yes posterior oropharynx normal and Yes tonsils normal (no TP congestion) Eyes Eyelids: Yes eyelids normal Conjunctivae: conjunctivae normal Pupils: Equal, round and reactive pupils present EOM: EOMs intact bilaterally Neck Neck: Yes supple and No lymphadenopathy Thyroid: Thyroid normal Resp Auscultation: clear to auscultation bilaterally, no rales and no wheezes Cardio Rate: regular rate Rhythm: regular rhythm Heart sounds: no murmurs GI Palpation (GI): Soft to palpation, nontender and No hepatosplenomegaly present Auscultation: normal bowel sounds General: Yes no CVA tenderness Back/Spine/Pelvis Back: no CVA tenderness Thoracic/Lumbar Spine: thoracic and lumbar spine normal to inspection Skin Lesions: no lesions Rashes: no rashes Neuro General: patient oriented x3, moves all extremities, no focal motor deficits and CN's II-XI intact bilaterally Cranial nerves: Yes Equal, round and reactive pupils present Cognition (Neuro): normal cognition Gait exam (Neuro): Normal gait present Extrem General: Yes no clubbing, cyanosis or edema Coding Level of Care Code Est Pt Prev Care 40-64y(29015) Diagnoses Annual physical exam Z00.00 Smoker F17.200 Overweight (BMI 25.0-29.9) E66.3 Additional Codes PHQ-9 - 33775 - PHQ-9 Billing: Yes ([id number]) Assessment & Plan Assessment & Plan (1) Annual physical exam: Code(s): Z00. - Encounter for general adult medical examination without abnormal findings Category: Medical Plan: Check labs YECENIA to complete his annual exam Patient recalls getting his Cologuard test done sometime back in September 2024 but states that he never received a call back from GI as to how his test came out He was referred for a screening colonoscopy but after seeing GI earlier this year for his precolonoscopy visit, this was changed over to Cologuard testing due to patient's average colon cancer risks We have not received a copy of his Cologuard test result and will try to reach out to GI tomorrow to see if they can have his result sent over to us for documentation (2) Smoker: Code(s): F17.200 - Nicotine dependence, unspecified, uncomplicated Category: Social Hx Plan: Patient is counseled again on complete smoking cessation (3) Overweight (BMI 25.0-29.9): Code(s): E66.3 - Overweight Category: Medical Plan: Reinforced diet/exercise as tolerated/lose weight Plan To return in 1 year for his next annual physical examination Orders: Orders UA CC w/rflx Micro + Cult 01/23/25 R30.0 - Dysuria, Z00.00 - Encounter for general adult medical examination without abnormal findings Hemoglobin A1c 01/23/25 Z00.00 - Encounter for general adult medical examination without abnormal findings Prostate Specific Antigen 01/23/25 N40.0 - Benign prostatic hyperplasia without lower urinary tract symptoms, Z00.00 - Encounter for general adult medical examination without abnormal findings Complete Blood Count Auto Diff 01/23/25 D64.9 - Anemia, unspecified, Z00.00 - Encounter for general adult medical examination without abnormal findings Comprehensive Falcon. Panel Fast 01/23/25 E78.00 - Pure hypercholesterolemia, unspecified, Z00.00 - Encounter for general adult medical examination without abnormal findings Lipid Panel 01/23/25 E78.00 - Pure hypercholesterolemia, unspecified, Z00.00 - Encounter for general adult medical examination without abnormal findings TSH reflex Free T4 01/23/25 E78.00 - Pure hypercholesterolemia, unspecified, Z00.00 - Encounter for general adult medical examination without abnormal f indings Vitamin B12 and Folate 01/23/25 E53.8 - Deficiency of other specified B group vitamins, Z00.00 - Encounter for general adult medical examination without abnormal findings Vitamin D 25-OH Total 01/23/25 E55.9 - Vitamin D deficiency, unspecified, Z00.00 - Encounter for general adult medical examination without abnormal findings
[2025-01-23 17:06] VITALS: BP 120/80; PULSE 90; RESP 18; TEMP 36.3; O2SAT 98; BMI 26.3
== END 2025-01-23 17:57 | disposition home or self-care (01) ==
LOC: HO.HMCH 16:34
PROVIDERS: PCP Internal Medicine; Visit Provider Internal Medicine
DX: Z00.00 Encounter for general adult medical examination without abnormal findings (principal); F17.200 Nicotine dependence, unspecified, uncomplicated; E66.3 Overweight

== ENCOUNTER → 2025-01-23 16:34 | Outpatient (BNVA) | payer OTHER, SELFPAY | PROVIDERS: PCP Internal Medicine; Visit Provider Internal Medicine | DX: Z00.00 Encounter for general adult medical examination without abnormal findings (principal); E66.3 Overweight; R30.0 Dysuria; N40.0 Benign prostatic hyperplasia without lower urinary tract symptoms; D64.9 Anemia, unspecified; E78.00 Pure hypercholesterolemia, unspecified; E53.8 Deficiency of other specified B group vitamins; E55.9 Vitamin D deficiency, unspecified; F17.200 Nicotine dependence, unspecified, uncomplicated; Z68.26 Body mass index [BMI] 26.0-26.9, adult | CPT/HCPCS: 96127; 99396 ==

== ENCOUNTER 2025-01-24 08:25 | Outpatient (REF) | payer OTHER, SELFPAY ==
[2025-01-24 08:49] LABS: MANUAL DIFF FLAG NO
[2025-01-24 08:58] LABS: Hematocrit 43.9 % (42.0-52.0); Hemoglobin 14.9 g/dl (14.0-18.0); Imm Gran Abs Auto 0.03 X10*3/uL (0.00-0.03); Imm Gran Pct Auto 0.4 % (0.0-0.4); Lymphocytes Absolute Auto 2.9 X10*3/uL (1.2-4.9); Mean Corpuscular HGB Conc 33.9 g/dl (31.0-36.0); Mean Corpuscular Hemoglobin 31.8 pg (27.0-33.0); Mean Corpuscular Volume 93.6 fL (80.0-98.0); NRBC Abs Auto 0.000 X10*3/uL (0.0-0.012); NRBC Pct Auto 0.0 /100WBC (0.0-0.2); Platelet Count 197 X10*3/uL (160-400); Red Blood Count 4.69 X10*6/uL (4.60-5.80); White Blood Count 8.0 X10*3/uL (4.8-10.8)
[2025-01-24 09:08] LABS: Appearance Urine Clear; Glucose Urine UA Negative (Negative); PH 5.5 (5.0-9.0); Specific Gravity - Urine >= 1.030 (1.005-1.025)
[2025-01-24 09:53] LABS: Alanine Aminotransferase 45 U/L (0-40); Albumin Level 4.4 g/dL (3.5-5.0); Alkaline Phosphatase 69 U/L (39-117); Anion Gap 9 (12-20); Aspartate Amino Transferase 29 U/L (5-37); Blood Urea Nitrogen 19 mg/dL (9-16); Calcium 9.1 mg/dL (8.4-10.2); Carbon Dioxide 25 mmol/L (22-29); Chloride 112 mmol/L (96-108); Cholesterol 166 mg/dL (<200); Estimated Glomerular Filt Rate > 60; HDL Cholesterol 40 mg/dL (>40); Potassium 3.7 mmol/L (3.3-5.1); Sodium 142 mmol/L (135-145); Total Protein 7.3 g/dL (6.5-8.0); Triglycerides 80 mg/dL (<150)
[2025-01-24 10:13] LABS: Folate 11.8 ng/mL (> or = 4.0); Prostate Specific Antigen 0.77 ng/mL (<0.05-4.0); Vitamin B12 684 pg/mL (200-900)
== END 2025-01-24 08:26 | disposition home or self-care (01) ==
LOC: HO.LAB 08:25
PROVIDERS: PCP Internal Medicine; Visit Provider Internal Medicine
DX: Z00.00 Encounter for general adult medical examination without abnormal findings (principal); N40.0 Benign prostatic hyperplasia without lower urinary tract symptoms; E53.8 Deficiency of other specified B group vitamins; R30.0 Dysuria; D64.9 Anemia, unspecified; E78.00 Pure hypercholesterolemia, unspecified; E55.9 Vitamin D deficiency, unspecified
CPT/HCPCS: 36415; 80053; 80061; 81003; 82306; 82607; 82746; 83036; 84153; 84443; 85025